=== PATIENT | female | born 1980 | race Caucasian/White ===

== ENCOUNTER → 2016-02-21 | Outpatient (REF) | payer BC, MEDICAID ==
[2016-02-21 13:19] LABS: BASO % 0.6 % (0.0-1.0); EOS # 0.1 K/mm3 (0.0-0.50); EOS % 1.5 % (0.0-3.0); LARGE UNSTAINED CELL # 0.2 K/mm3 (0.0-0.4); LARGE UNSTAINED CELL % 2.2 % (0.0-4.0); LYMPH # 2.6 K/mm3 (1.5-4.5); LYMPH % 28.3 % (24.0-44.0); MEAN CORPUSCULAR HEMOGLOBIN 30.5 pg (27.0-33.0); MEAN CORPUSCULAR HGB CONC 34.3 g/dl (32.0-36.5); MEAN CORPUSCULAR VOLUME 88.9 fl (80.0-96.0); MONO # 0.3 K/mm3 (0.0-0.8); NEUTROPHILS # 5.8 K/mm3 (1.8-7.7); NEUTROPHILS % 64.4 % (36.0-66.0); PLATELET COUNT, AUTOMATED 265 k/mm3 (150-450)
[2016-02-21 14:00] LABS: ALBUMIN 4.3 GM/DL (3.2-5.2); ALBUMIN/GLOBULIN RATIO 1.19 (1.00-1.93); ALKALINE PHOSPHATASE 72 U/L (45-117); ALT/SGPT 24 U/L (12-78); ANION GAP 13 MEQ/L (8-16); AST/SGOT 13 U/L (15-37); BILIRUBIN,TOTAL 0.4 MG/DL (0.2-1.0); BLOOD UREA NITROGEN 14 MG/DL (7-18); CALCIUM LEVEL 10.3 MG/DL (8.5-10.1); CARBON DIOXIDE LEVEL 23 MEQ/L (21-32); CHLORIDE LEVEL 106 MEQ/L (98-107); CREATININE FOR GFR 0.58 MG/DL (0.55-1.02); GLOMERULAR FILTRATION RATE > 60.0 (>60); GLUCOSE, FASTING 80 MG/DL (70-105); POTASSIUM SERUM 4.3 MEQ/L (3.5-5.1); SODIUM LEVEL 142 MEQ/L (136-145); TOTAL PROTEIN 7.9 GM/DL (6.4-8.2)
[2016-02-21 14:07] LABS: FOLATE > 24.0 NG/ML; VITAMIN B12 LEVEL 697 PG/ML
== END ==
LOC: M LABNEURO 13:04
PROVIDERS: ATTEND Psychiatry & Neurology Neurology
DX: E07.9 Disorder of thyroid, unspecified (principal); E55.9 Vitamin D deficiency, unspecified; R20.9 Unspecified disturbances of skin sensation

== ENCOUNTER 2018-12-16 11:36 | Emergency (ER) | payer BC, MEDICAID ==
[~2018-12-16] VITALS: Ht 160 cm; Wt 76.6 kg
[2018-12-16] MEDS ORDERED: SUCR1TAB56 PO (11:54)
[2018-12-16] MEDS ORDERED: VENL75CA47 PO (11:54)
[2018-12-16] MEDS ORDERED: LABE10TAB PO (11:54)
[2018-12-16] MEDS ORDERED: MAG-400T7 PO (11:54)
[2018-12-16] MEDS ORDERED: AZIT-12 PO (11:54)
[2018-12-16] MEDS ORDERED: LANS30CA93 PO (11:54)
[2018-12-16 12:18] LABS: BASO % 0.5 % (0.0-1.0); EOS # 0.3 10^3/uL (0.0-0.5); HEMATOCRIT 39.9 % (36.0-47.0); HEMOGLOBIN 13.2 g/dl (12.0-15.5); LYMPH % 39.9 % (24.0-44.0); MEAN CORPUSCULAR HEMOGLOBIN 30.6 pg (27.0-33.0); MEAN CORPUSCULAR HGB CONC 33.1 g/dl (32.0-36.5); MEAN CORPUSCULAR VOLUME 92.6 fl (80.0-96.0); MONO # 0.5 10^3/uL (0.0-0.8); MONO % 6.7 % (0.0-5.0); NEUTROPHILS # 3.6 10^3/uL (1.5-8.5); NEUTROPHILS % 48.4 % (36.0-66.0); PLATELET COUNT, AUTOMATED 222 10^3/uL (150-450); RED BLOOD COUNT 4.31 10^6/uL (4.00-5.40); WHITE BLOOD COUNT 7.5 10^3/uL (4.0-10.0)
[2018-12-16] MEDS ORDERED: PANTOPRAZOLE 40MG TAB (PROTONIX) PO ONE (12:30)
[2018-12-16] MEDS ORDERED: GI COCKTAIL 50ML BTL(HYOSCYAMINE/MAALOX/LIDOCAINE VISCOUS)(1:3:1) PO ONE (12:30)
--- NOTE | 2018-12-16 12:41 | REP ---
Chest x-ray: Two views. History: Chest pain. Findings: Monitoring electrodes are seen. The lungs are well inflated and clear. The pleural angles are sharp. Heart size is normal. Pulmonary vasculature is not increased. No significant bony abnormality. Impression: Negative chest x-ray. Electronically Signed by Shay Burciaga MD 12/16/2018 12:34 P
[2018-12-16 12:44] LABS: HCG, SERUM QUALITATIVE NEGATIVE (NEGATIVE)
[2018-12-16 12:46] LABS: ALBUMIN 3.9 GM/DL (3.2-5.2); ALT/SGPT 36 U/L (12-78); BILIRUBIN,DIRECT < 0.1 MG/DL (0.0-0.2); BILIRUBIN,TOTAL 0.3 MG/DL (0.2-1.0); BLOOD UREA NITROGEN 11 MG/DL (7-18); CALCIUM LEVEL 9.4 MG/DL (8.5-10.1); CARBON DIOXIDE LEVEL 25 MEQ/L (21-32); CHLORIDE LEVEL 107 MEQ/L (98-107); CK-MB VALUE MASS 1.2 NG/ML (<3.6); CPK CREATINE PHOSPHOKINASE 89 U/L (26-192); CREATININE FOR GFR 0.58 MG/DL (0.55-1.30); GLOMERULAR FILTRATION RATE > 60.0 (>60); GLUCOSE, FASTING 88 MG/DL (70-100); LIPASE 128 U/L (73-393); MB/CK RELATIVE INDEX 1.35 (< OR =4); POTASSIUM SERUM 3.8 MEQ/L (3.5-5.1); SODIUM LEVEL 142 MEQ/L (136-145); TOTAL PROTEIN 7.5 GM/DL (6.4-8.2); TROPONIN I < 0.02 NG/ML (< 0.10)
--- NOTE | 2018-12-16 13:24 | REP ---
Abdominal right upper quadrant ultrasound for cholecystitis: There are no comparisons. There is no cholelithiasis, gallbladder wall thickening or pericholecystic fluid. There is no intrahepatic or extrahepatic biliary duct dilatation. The common biliary duct measures 1.2 mm in diameter. The hepatic parenchyma demonstrates increased echogenicity compatible with hepato steatosis. There are no focal masses. The hepatic parenchyma is otherwise unremarkable. The pancreas is obscured by bowel gas. The right kidney is normal size measuring 10.8 x 4.7 x 5.1 cm. There is mild dilatation of the right renal pelvis. There are no right renal solid or cystic masses. No right renal calculi are identified by ultrasound. There is no right upper quadrant ascites. Impression: Hepato steatosis. Pancreas obscured by bowel gas. Mild dilatation of the right renal pelvis. No ultrasound evidence of acute cholecystitis. Electronically Signed by Desean Rendon MD 12/16/2018 01:15 P
[2018-12-16 13:30] VITALS: BP 136/85
--- NOTE | 2018-12-16 16:34 | ECGEPIP ---
[facility] - ED Test Date: 2018-12-16 Pat Name: DANIA SMITH Department: Room: - Gender: Female Supervisor Cd Area: ct : 1980 Requested By: Hudson Little Order Number: [id number] Reading MD: Kriss Mason Measurements Intervals [place] Rate: 88 P: 33 [place]: 150 QRS: 42 QRSD: 93 T: 46 QT: 362 QTc: 440 Interpretive Statements SINUS RHYTHM WITH SINUS ARRHYTHMIA NSTTW abnormalities NO PRIOR Electronically Signed on 12-16-2018 16:34:35 EST by Kriss Mason
--- NOTE | 2018-12-17 08:54 | ED PDOC ---
Post-Departure Follow-Up radiology reports faxed to Dr. Phan, Kriss Giraldo MD Dec 17, 2018 08:54
== END 2018-12-16 14:00 | disposition left against medical advice (07) ==
LOC: M ED 11:36
DX: R07.9 Chest pain, unspecified (principal); Z53.20 Procedure and treatment not carried out because of patient's decision for unspecified reasons; R94.31 Abnormal electrocardiogram [ECG] [EKG]; K76.0 Fatty (change of) liver, not elsewhere classified; N13.30 Unspecified hydronephrosis; F41.9 Anxiety disorder, unspecified; K21.9 Gastro-esophageal reflux disease without esophagitis; K44.9 Diaphragmatic hernia without obstruction or gangrene; Z87.442 Personal history of urinary calculi; Z87.891 Personal history of nicotine dependence; Z88.0 Allergy status to penicillin; Z88.2 Allergy status to sulfonamides; Z88.9 Allergy status to unspecified drugs, medicaments and biological substances; Z79.84 Long term (current) use of oral hypoglycemic drugs; Z79.899 Other long term (current) drug therapy

== ENCOUNTER → 2020-05-12 | Outpatient (CLI) | payer OTHER ==
[~2020-05-12] MED LIST: AZIT-12 PO; FIBE625T PO; LABE100T4 PO; LANS30CA93 PO; MAG-400T7 PO; PROP80CA; SUCR1TAB56 PO; VENL75CA47 PO; VITMTA PO
== END ==
LOC: M LABSMTC 10:08
PROVIDERS: ATTEND Anesthesiology
DX: Z01.812 Encounter for preprocedural laboratory examination (principal); Z20.822 Contact with and (suspected) exposure to COVID-19

== ENCOUNTER 2020-05-17 13:51 | Day surgery (SDC) | payer OTHER ==
[~2020-05-17] VITALS: Ht 160 cm; Wt 86.1 kg
[~2020-05-17 13:51] MED LIST changes: +LIDOCAINE 2% 100MG/5ML SDV (FOR ANES.) As Ordered ONE; +NS 1,000 ML IV ONE; +fentaNYL 100 MCG/2 ML INJECTION (J3010) As Ordered ONE; +propofoL 200 MG/20 ML VIAL As Ordered ONE
[2020-05-17] MEDS ORDERED: ALPR0.25 PO (14:11)
[2020-05-17] MEDS ORDERED: propofoL 200 MG/20 ML VIAL As Ordered ONE ×2 (15:41→15:45)
[2020-05-17] MEDS ORDERED: LIDOCAINE 2% 100MG/5ML SDV (FOR ANES.) As Ordered ONE (15:45)
--- NOTE | 2020-05-17 16:10 | ROOR ---
Patient Name: Deepa Ogden Procedure Date: 05/17/2020 3:50 PM Date of : 1980 Age: 39 Room: [facility] Gender: Female Note Status: Finalized Procedure: Upper GI endoscopy Indications: Dysphagia, Heartburn, Esophageal reflux symptoms that persist despite appropriate therapy Providers: Jackson COSTELLO MD Referring MD: ROCKY Jeffrey Requesting Provider: Medicines: Monitored Anesthesia Care Complications: No immediate complications. Procedure: Pre-Anesthesia Assessment: - The heart rate, respiratory rate, oxygen saturations, blood pressure, adequacy of pulmonary ventilation, and response to care were monitored throughout the procedure. The Endoscope was introduced through the mouth, and advanced to the second part of duodenum. The upper GI endoscopy was accomplished without difficulty. The patient tolerated the procedure well. Findings: The esophagus was normal. The stomach was normal. The examined duodenum was normal. No endoscopic abnormality was evident in the esophagus to explain the patient's complaint of dysphagia. It was decided, however, to proceed with dilation of the entire esophagus. The scope was withdrawn. Dilation was performed with a Turcios dilator with no resistance at 54 Fr. The dilation site was examined following endoscope reinsertion and showed no change. This was biopsied with a cold forceps for histology. Impression: - Normal esophagus. - Normal stomach. - Normal examined duodenum. - No endoscopic esophageal abnormality to explain patient's dysphagia. Esophagus dilated w/54F Turcios. Biopsied. Recommendation: - Observe patient's clinical course. - Telephone endoscopist for pathology results in 2 weeks. - Continue present medications. Procedure Code(s): --- Professional --- 28929, Esophagogastroduodenoscopy, flexible, transoral; with biopsy, single or multiple 34170, Dilation of esophagus, by unguided sound or bougie, single or multiple passes Diagnosis Code(s): --- Professional --- R13.10, Dysphagia, unspecified R12, Heartburn K21.9, Gastro-esophageal reflux disease without esophagitis CPT copyright 2019 [employer]. All rights reserved. The codes documented in this report are preliminary and upon rug layer review may be revised to meet current compliance requirements. Jackson Costello MD Jackson COSTELLO MD 05/17/2020 4:09:40 PM Electronically signed by Jackson COSTELLO MD Number of Addenda: 0 Note Initiated On: 05/17/2020 3:50 PM Estimated Blood Loss: Estimated blood loss: none.
[2020-05-17 16:30] VITALS: BP 156/87
== END 2020-05-17 16:33 | disposition home or self-care (01) ==
LOC: M OPP 13:51
PROVIDERS: ATTEND Internal Medicine Gastroenterology
DX: K21.9 Gastro-esophageal reflux disease without esophagitis (principal); R13.10 Dysphagia, unspecified; R12 Heartburn; Z79.899 Other long term (current) drug therapy; Z88.0 Allergy status to penicillin; Z88.2 Allergy status to sulfonamides; Z88.8 Allergy status to other drugs, medicaments and biological substances; Z87.891 Personal history of nicotine dependence
CPT/HCPCS: 43239; 43450; 88305; J3010

== ENCOUNTER → 2022-04-13 | Outpatient (CLI) | payer OTHER ==
[~2022-04-13] MED LIST changes: +ALPR0.25 PO; +BUTA-198 PO; -LABE100T4 PO; +LABE100T6 PO; -LIDOCAINE 2% 100MG/5ML SDV (FOR ANES.) As Ordered ONE; +NORE1TAB94 PO; -NS 1,000 ML IV ONE; +PROBCAP14 PO; -PROP80CA; +PROP80CA PO; -fentaNYL 100 MCG/2 ML INJECTION (J3010) As Ordered ONE; -propofoL 200 MG/20 ML VIAL As Ordered ONE
== END ==
LOC: M LABSMTC 10:48
PROVIDERS: ATTEND Anesthesiology
DX: Z01.812 Encounter for preprocedural laboratory examination (principal)

== ENCOUNTER 2022-04-18 10:53 | Day surgery (SDC) | payer OTHER ==
[~2022-04-18] VITALS: Ht 160 cm; Wt 86.1 kg
[~2022-04-18 10:53] MED LIST changes: +NS 1,000 ML IV ONE
[2022-04-18] MEDS ORDERED: propofoL 500 MG/50 ML VIAL As Ordered ONE (11:16)
[2022-04-18] MEDS ORDERED: LIDOCAINE 2% 100MG/5ML SDV (FOR ANES.) As Ordered ONE (11:16)
[2022-04-18] MEDS ORDERED: fentaNYL 100 MCG/2 ML INJECTION As Ordered ONE (11:17)
[2022-04-18] MEDS ORDERED: ONDANSETRON 4MG 2ML VIAL As Ordered ONE (12:02)
[2022-04-18 13:45] VITALS: BP 120/62
== END 2022-04-18 14:20 | disposition home or self-care (01) ==
LOC: M OPP 10:53
PROVIDERS: ATTEND Internal Medicine Gastroenterology
DX: K58.1 Irritable bowel syndrome with constipation (principal); Z80.0 Family history of malignant neoplasm of digestive organs; K30 Functional dyspepsia; R11.2 Nausea with vomiting, unspecified; E11.9 Type 2 diabetes mellitus without complications; G43.909 Migraine, unspecified, not intractable, without status migrainosus; F32.9 Major depressive disorder, single episode, unspecified; F41.9 Anxiety disorder, unspecified; Z79.1 Long term (current) use of non-steroidal anti-inflammatories (NSAID); Z79.899 Other long term (current) drug therapy; Z88.1 Allergy status to other antibiotic agents; Z88.2 Allergy status to sulfonamides; Z88.8 Allergy status to other drugs, medicaments and biological substances; Z87.891 Personal history of nicotine dependence
CPT/HCPCS: 43239; 45380; 88305; J2405; J3010